=== PATIENT | female | born 1945 | race Caucasian/White ===

== ENCOUNTER 2017-05-01 16:19 | Inpatient (IN) | payer MEDICARE, OTHER ==
[~2017-05-01] VITALS: Ht 160 cm; Wt 53.2 kg
[~2017-05-01 16:19] MED LIST: WARF2.5T PO
[2017-05-01] MEDS ORDERED: ondansetron/PF 4mg/2ml inj IV ONE (17:00)
[2017-05-01] MEDS ORDERED: normal saline 1000ml 1,000 ML IV ONE (17:00)
[2017-05-01] MEDS ORDERED: normal saline 1000ML IV soln IV ONE (17:30)
[2017-05-01 17:51] LABS: BASOPHILS % (AUTO) 0.3 % (0-1); EOSINOPHILS # (AUTO) 0.1 X10'3 (0-0.9); EOSINOPHILS % (AUTO) 0.9 % (0-6); HEMOGLOBIN 8.2 g/dl (12.0-16.0); LYMPHOCYTES # (AUTO) 1.8 X10'3 (1.1-4.8); MEAN CORPUSCULAR HEMOGLOBIN 30.4 PG (27.0-31.0); MEAN CORPUSCULAR HGB CONC 32.7 % (33.0-36.5); MEAN CORPUSCULAR VOLUME 92.9 FL (78-98); MEAN PLATELET VOLUME 7.2 FL (7.4-10.4); MONOCYTES # (AUTO) 0.7 X10'3 (0-0.9); MONOCYTES % (AUTO) 7.2 % (2-12); NEUTROPHILS # (AUTO) 6.8 X10'3 (1.8-7.7); NEUTROPHILS % (AUTO) 72.6 % (42-75); PLATELET COUNT 436 X10'3 (140-440); RED BLOOD COUNT 2.69 X10'6 (4.20-5.60); RED CELL DISTRIBUTION WIDTH 15.4 % (11.5-14.5); WHITE BLOOD COUNT 9.4 X10'3 (4.5-11.0)
[2017-05-01 18:02] LABS: INR 1.7 INR; PROTHROMBIN TIME 16.9 SECONDS (9.0-12.0)
[2017-05-01 18:06] LABS: ALANINE AMINOTRANSFERASE 20 U/L (12-78); ALBUMIN 3.2 G/DL (3.4-5.0); ALBUMIN/GLOBULIN RATIO 0.9 (1.1-1.5); ALKALINE PHOSPHATASE 69 IU/L (46-116); ANION GAP 11 (8-16); ASPARTATE AMINO TRANSFERASE 19 U/L (10-37); BILIRUBIN,TOTAL 0.3 MG/DL (0.1-1.0); BLOOD UREA NITROGEN 54 MG/DL (7-18); BUN/CREATININE RATIO 38.8 (6.6-38.0); CALCIUM 8.3 MG/DL (8.5-10.1); CHLORIDE 107 MMOL/L (99-107); CREATININE 1.39 MG/DL (0.40-0.90); GLUCOSE 122 MG/DL (70-104); POTASSIUM 4.5 MMOL/L (3.5-5.1); SODIUM 141 MMOL/L (135-145); TOTAL CARBON DIOXIDE 23.5 MMOL/L (24-32); TOTAL PROTEIN 6.8 G/DL (6.4-8.2); eGFR 37 ML/MIN
[2017-05-01] MEDS: octreotide inj. 1,250 MCG in normal saline 250ml IV soln 250 ML IV SCH (18:43)
[2017-05-01] MEDS ORDERED: LORazepam 1 MG tablet PO PRN (20:35)
[2017-05-01] MEDS ORDERED: magnesium hydroxide 30ml (MOM) UD suspension PO PRN (20:35)
[2017-05-01] MEDS ORDERED: thiamine inj. 100 MG in normal saline 100ml IV soln 100 ML IV ONE (20:35)
[2017-05-01] MEDS ORDERED: ondansetron/PF 4mg/2ml inj IV PRN (20:35)
[2017-05-01] MEDS ORDERED: LORazepam 2 mg/ml vial IV PRN (20:35)
[2017-05-01] MEDS ORDERED: mag hydrox/Alum hydrox/simeth 30ml oral suspension PO PRN (20:35)
[2017-05-01] MEDS: pantoprazole 40MG/NS 100ML BAG 100 ML IV SCH (21:45)
[2017-05-01 22:11] LABS: OCCULT BLOOD STOOL POSITIVE (Neg)
[2017-05-01 23:22] VITALS: BP 148/98
[2017-05-01 23:42] VITALS: BP 154/84
[2017-05-01 23:55] VITALS: BP 151/78
[2017-05-02] VITALS (16 sets, daily range): BP systolic 141–183; BP diastolic 65–91
[2017-05-02] MEDS ORDERED: QUET-1 PO (00:19)
[2017-05-02] MEDS ORDERED: LOSA25TA96 PO (00:20)
[2017-05-02] MEDS: pantoprazole 40MG/NS 100ML BAG 100 ML IV SCH ×4 (02:07→15:59)
[2017-05-02] MEDS: normal saline 1000ml 1,000 ML IV SCH ×3 (02:23→15:38)
[2017-05-02 07:31] LABS: ANION GAP 9 (8-16); BLOOD UREA NITROGEN 52 MG/DL (7-18); BUN/CREATININE RATIO 36.6 (6.6-38.0); CHLORIDE 112 MMOL/L (99-107); CREATININE 1.42 MG/DL (0.40-0.90); GLUCOSE 119 MG/DL (70-104); MAGNESIUM 1.9 MG/DL (1.5-2.4); SODIUM 141 MMOL/L (135-145); TOTAL CARBON DIOXIDE 20.3 MMOL/L (24-32); eGFR 36 ML/MIN
[2017-05-02 07:32] LABS: INR 1.6 INR; PROTHROMBIN TIME 16.2 SECONDS (9.0-12.0)
[2017-05-02 07:33] LABS: BASOPHILS % (AUTO) 0.7 % (0-1); EOSINOPHILS # (AUTO) 0.1 X10'3 (0-0.9); EOSINOPHILS % (AUTO) 1.7 % (0-6); HEMATOCRIT 32.5 % (35.0-45.0); HEMOGLOBIN 10.8 g/dl (12.0-16.0); LYMPHOCYTES # (AUTO) 2.5 X10'3 (1.1-4.8); LYMPHOCYTES % (AUTO) 35.2 % (21-51); MEAN CORPUSCULAR HEMOGLOBIN 30.1 PG (27.0-31.0); MEAN CORPUSCULAR HGB CONC 33.4 % (33.0-36.5); MEAN CORPUSCULAR VOLUME 90.2 FL (78-98); MEAN PLATELET VOLUME 7.2 FL (7.4-10.4); MONOCYTES # (AUTO) 0.7 X10'3 (0-0.9); MONOCYTES % (AUTO) 10.6 % (2-12); NEUTROPHILS # (AUTO) 3.6 X10'3 (1.8-7.7); NEUTROPHILS % (AUTO) 51.8 % (42-75); PLATELET COUNT 264 X10'3 (140-440); RED CELL DISTRIBUTION WIDTH 16.5 % (11.5-14.5)
[2017-05-02] MEDS: thiamine 100mg tablet PO SCH (08:12)
[2017-05-02] MEDS: folic acid 1mg tablet PO SCH (08:13)
[2017-05-02] MEDS: multivitamins, therapeutics tablet PO SCH (08:13)
[2017-05-02] MEDS: acetaminophen 325mg tablet PO PRN (09:37)
[2017-05-02] MEDS ORDERED: normal saline 1000ml 1,000 ML IV SCH (11:09)
[2017-05-02] MEDS ORDERED: LIDOcaine Viscous 15ml cup PO ONE (11:10)
[2017-05-02] MEDS ORDERED: fentaNYL/PF 50MCG/1 ML 2ML syringe IV PRN (11:10)
[2017-05-02] MEDS ORDERED: simethicone 40mg/0.6ml oral drops 30ml MC ONE (11:10)
[2017-05-02] MEDS ORDERED: MIDAZolam 1mg/ml 10ml vial IV PRN (11:10)
[2017-05-02] MEDS ORDERED: fentaNYL/PF 50MCG/1 ML 2ML syringe ONE (11:55)
[2017-05-02] MEDS ORDERED: MIDAZolam 1mg/ml 10ml vial ONE (11:56)
[2017-05-02] MEDS ORDERED: LIDOcaine Viscous 15ml cup ONE (11:56)
[2017-05-02] MEDS ORDERED: epiNEPHrine 0.1mg/ml 10ml syringe ONE (13:55)
[2017-05-02 16:12] LABS: HEMOGLOBIN 10.8 g/dl (12.0-16.0); MEAN CORPUSCULAR HEMOGLOBIN 30.2 PG (27.0-31.0); MEAN CORPUSCULAR HGB CONC 33.6 % (33.0-36.5); MEAN CORPUSCULAR VOLUME 89.9 FL (78-98); MEAN PLATELET VOLUME 7.1 FL (7.4-10.4); PLATELET COUNT 259 X10'3 (140-440); RED BLOOD COUNT 3.56 X10'6 (4.20-5.60); RED CELL DISTRIBUTION WIDTH 16.8 % (11.5-14.5); WHITE BLOOD COUNT 10.1 X10'3 (4.5-11.0)
[2017-05-02] MEDS ORDERED: haloperidol 5mg tablet PO PRN (19:00)
[2017-05-02] MEDS ORDERED: haloperidol lactate 5mg/ml inj IM PRN (19:00)
[2017-05-02] MEDS ORDERED: LORazepam 2 mg/ml vial IV PRN (19:00)
[2017-05-02] MEDS ORDERED: LORazepam 1 MG tablet PO PRN (19:00)
[2017-05-02] MEDS ORDERED: mag hydrox/Alum hydrox/simeth 30ml oral suspension PO PRN (19:00)
[2017-05-02] MEDS ORDERED: thiamine inj. 100 MG in normal saline 100ml IV soln 100 ML IV ONE (19:00)
[2017-05-02] MEDS ORDERED: loperamide 2mg capsule PO PRN (19:00)
[2017-05-02] MEDS: octreotide inj. 1,250 MCG in normal saline 250ml IV soln 250 ML IV SCH (20:27)
[2017-05-02 20:50] LABS: HEMATOCRIT 26.7 % (35.0-45.0); HEMOGLOBIN 8.9 g/dl (12.0-16.0); MEAN CORPUSCULAR HGB CONC 33.4 % (33.0-36.5); MEAN CORPUSCULAR VOLUME 89.8 FL (78-98); MEAN PLATELET VOLUME 6.7 FL (7.4-10.4); PLATELET COUNT 247 X10'3 (140-440); RED BLOOD COUNT 2.97 X10'6 (4.20-5.60); RED CELL DISTRIBUTION WIDTH 16.9 % (11.5-14.5); WHITE BLOOD COUNT 7.6 X10'3 (4.5-11.0)
[2017-05-02] MEDS: quetiapine 100mg tablet PO SCH (21:15)
[2017-05-03] MEDS: normal saline 1000ml 1,000 ML IV SCH ×3 (00:25→17:13)
[2017-05-03] MEDS: pantoprazole 40MG/NS 100ML BAG 100 ML IV SCH ×6 (00:25→23:00)
[2017-05-03 02:30] VITALS: BP 147/66
[2017-05-03 06:00] VITALS: BP 154/80
[2017-05-03 06:08] LABS: BASOPHILS % (AUTO) 0.7 % (0-1); EOSINOPHILS # (AUTO) 0.2 X10'3 (0-0.9); EOSINOPHILS % (AUTO) 4.4 % (0-6); HEMOGLOBIN 9.1 g/dl (12.0-16.0); LYMPHOCYTES # (AUTO) 1.7 X10'3 (1.1-4.8); LYMPHOCYTES % (AUTO) 33.3 % (21-51); MEAN CORPUSCULAR HGB CONC 33.6 % (33.0-36.5); MEAN CORPUSCULAR VOLUME 89.1 FL (78-98); MEAN PLATELET VOLUME 6.8 FL (7.4-10.4); MONOCYTES # (AUTO) 0.4 X10'3 (0-0.9); MONOCYTES % (AUTO) 7.9 % (2-12); NEUTROPHILS # (AUTO) 2.8 X10'3 (1.8-7.7); NEUTROPHILS % (AUTO) 53.7 % (42-75); PLATELET COUNT 264 X10'3 (140-440); RED BLOOD COUNT 3.02 X10'6 (4.20-5.60); RED CELL DISTRIBUTION WIDTH 16.7 % (11.5-14.5); WHITE BLOOD COUNT 5.1 X10'3 (4.5-11.0)
[2017-05-03 06:24] LABS: INR 2.1 INR; PROTHROMBIN TIME 20.9 SECONDS (9.0-12.0)
[2017-05-03 06:41] LABS: ALANINE AMINOTRANSFERASE 19 U/L (12-78); ALBUMIN 2.4 G/DL (3.4-5.0); ALBUMIN/GLOBULIN RATIO 0.8 (1.1-1.5); ALKALINE PHOSPHATASE 53 IU/L (46-116); AMYLASE 52 U/L (25-115); ANION GAP 7 (8-16); ASPARTATE AMINO TRANSFERASE 19 U/L (10-37); BILIRUBIN,TOTAL 0.3 MG/DL (0.1-1.0); BLOOD UREA NITROGEN 30 MG/DL (7-18); BUN/CREATININE RATIO 26.3 (6.6-38.0); CALCIUM 7.5 MG/DL (8.5-10.1); CHLORIDE 116 MMOL/L (99-107); CREATININE 1.14 MG/DL (0.40-0.90); GLUCOSE 110 MG/DL (70-104); LIPASE 242 U/L (73-393); MAGNESIUM 1.6 MG/DL (1.5-2.4); PHOSPHORUS 2.4 MG/DL (2.3-4.5); SODIUM 143 MMOL/L (135-145); TOTAL CARBON DIOXIDE 19.7 MMOL/L (24-32); TOTAL PROTEIN 5.4 G/DL (6.4-8.2); eGFR 47 ML/MIN
[2017-05-03] MEDS ORDERED: folic acid inj. 2 MG, thiamine inj. 100 MG, MVI, adult No.4 with vit. K 10 ML in dextro... IV SCH ×4 (08:00)
[2017-05-03] MEDS ORDERED: nicotine 14mg patch - 24hr TD SCH (08:00)
[2017-05-03] MEDS: folic acid 1mg tablet PO SCH (09:00)
[2017-05-03] MEDS: multivitamins, therapeutics tablet PO SCH (09:00)
[2017-05-03] MEDS: thiamine 100mg tablet PO SCH (09:00)
[2017-05-03 09:58] LABS: HEMATOCRIT 28.1 % (35.0-45.0); HEMOGLOBIN 9.4 g/dl (12.0-16.0); MEAN CORPUSCULAR HEMOGLOBIN 29.9 PG (27.0-31.0); MEAN CORPUSCULAR HGB CONC 33.5 % (33.0-36.5); MEAN CORPUSCULAR VOLUME 89.3 FL (78-98); MEAN PLATELET VOLUME 6.9 FL (7.4-10.4); PLATELET COUNT 253 X10'3 (140-440); RED BLOOD COUNT 3.14 X10'6 (4.20-5.60); RED CELL DISTRIBUTION WIDTH 17.1 % (11.5-14.5); WHITE BLOOD COUNT 5.6 X10'3 (4.5-11.0)
[2017-05-03 11:00] VITALS: BP 169/72
[2017-05-03 15:00] VITALS: BP 166/79
[2017-05-03 15:21] LABS: HEMATOCRIT 28.6 % (35.0-45.0); HEMOGLOBIN 9.6 g/dl (12.0-16.0); MEAN CORPUSCULAR HEMOGLOBIN 29.9 PG (27.0-31.0); MEAN CORPUSCULAR HGB CONC 33.6 % (33.0-36.5); MEAN CORPUSCULAR VOLUME 89.2 FL (78-98); MEAN PLATELET VOLUME 6.6 FL (7.4-10.4); PLATELET COUNT 264 X10'3 (140-440); RED CELL DISTRIBUTION WIDTH 16.7 % (11.5-14.5); WHITE BLOOD COUNT 6.7 X10'3 (4.5-11.0)
[2017-05-03 17:50] VITALS: BP 132/87
[2017-05-03] MEDS: quetiapine 100mg tablet PO SCH (19:52)
[2017-05-03 20:51] LABS: HEMATOCRIT 26.5 % (35.0-45.0); HEMOGLOBIN 8.9 g/dl (12.0-16.0); MEAN CORPUSCULAR HEMOGLOBIN 29.9 PG (27.0-31.0); MEAN CORPUSCULAR HGB CONC 33.6 % (33.0-36.5); MEAN PLATELET VOLUME 6.5 FL (7.4-10.4); PLATELET COUNT 266 X10'3 (140-440); RED BLOOD COUNT 2.97 X10'6 (4.20-5.60); RED CELL DISTRIBUTION WIDTH 16.3 % (11.5-14.5); WHITE BLOOD COUNT 6.2 X10'3 (4.5-11.0)
[2017-05-03 22:00] VITALS: BP 152/88
[2017-05-03] MEDS: octreotide inj. 1,250 MCG in normal saline 250ml IV soln 250 ML IV SCH (23:30)
[2017-05-04] MEDS: acetaminophen 325mg tablet PO PRN (00:40)
[2017-05-04] MEDS: pantoprazole 40MG/NS 100ML BAG 100 ML IV SCH ×5 (01:00→19:58)
[2017-05-04] MEDS: normal saline 1000ml 1,000 ML IV SCH (02:33)
[2017-05-04 06:00] VITALS: BP 150/95
[2017-05-04 06:06] LABS: BASOPHILS % (AUTO) 0.6 % (0-1); EOSINOPHILS # (AUTO) 0.2 X10'3 (0-0.9); EOSINOPHILS % (AUTO) 4.4 % (0-6); HEMATOCRIT 26.3 % (35.0-45.0); HEMOGLOBIN 8.8 g/dl (12.0-16.0); LYMPHOCYTES # (AUTO) 2.1 X10'3 (1.1-4.8); MEAN CORPUSCULAR HGB CONC 33.4 % (33.0-36.5); MEAN CORPUSCULAR VOLUME 89.7 FL (78-98); MEAN PLATELET VOLUME 6.9 FL (7.4-10.4); MONOCYTES # (AUTO) 0.5 X10'3 (0-0.9); MONOCYTES % (AUTO) 9.2 % (2-12); NEUTROPHILS # (AUTO) 2.4 X10'3 (1.8-7.7); NEUTROPHILS % (AUTO) 45.8 % (42-75); PLATELET COUNT 250 X10'3 (140-440); RED BLOOD COUNT 2.94 X10'6 (4.20-5.60); RED CELL DISTRIBUTION WIDTH 16.6 % (11.5-14.5); WHITE BLOOD COUNT 5.2 X10'3 (4.5-11.0)
[2017-05-04 06:16] LABS: INR 2.4 INR; PROTHROMBIN TIME 23.7 SECONDS (9.0-12.0)
[2017-05-04 06:26] LABS: ALANINE AMINOTRANSFERASE 19 U/L (12-78); ALBUMIN 2.4 G/DL (3.4-5.0); ALBUMIN/GLOBULIN RATIO 0.8 (1.1-1.5); ALKALINE PHOSPHATASE 54 IU/L (46-116); AMYLASE 51 U/L (25-115); ANION GAP 9 (8-16); ASPARTATE AMINO TRANSFERASE 17 U/L (10-37); BILIRUBIN,TOTAL 0.3 MG/DL (0.1-1.0); BLOOD UREA NITROGEN 14 MG/DL (7-18); BUN/CREATININE RATIO 11.9 (6.6-38.0); CALCIUM 7.6 MG/DL (8.5-10.1); CHLORIDE 117 MMOL/L (99-107); CREATININE 1.18 MG/DL (0.40-0.90); GLUCOSE 107 MG/DL (70-104); LIPASE 291 U/L (73-393); MAGNESIUM 1.4 MG/DL (1.5-2.4); PHOSPHORUS 2.6 MG/DL (2.3-4.5); POTASSIUM 3.6 MMOL/L (3.5-5.1); SODIUM 147 MMOL/L (135-145); TOTAL CARBON DIOXIDE 20.9 MMOL/L (24-32); TOTAL PROTEIN 5.3 G/DL (6.4-8.2); eGFR 45 ML/MIN
[2017-05-04] MEDS ORDERED: magnesium 2GM in 50ml NS 50 ML IV PRN (07:15)
[2017-05-04] MEDS ORDERED: magnesium 4gm in 100ml NS 100 ML IV PRN (07:15)
[2017-05-04] MEDS: magnesium Cl slow-release 64mg tablet PO PRN (07:41)
[2017-05-04] MEDS: thiamine 100mg tablet PO SCH (07:41)
[2017-05-04] MEDS: multivitamins, therapeutics tablet PO SCH (07:41)
[2017-05-04] MEDS: folic acid 1mg tablet PO SCH (07:41)
[2017-05-04 09:41] LABS: HEMATOCRIT 26.4 % (35.0-45.0); HEMOGLOBIN 8.9 g/dl (12.0-16.0); MEAN CORPUSCULAR HEMOGLOBIN 30.4 PG (27.0-31.0); MEAN CORPUSCULAR HGB CONC 33.8 % (33.0-36.5); MEAN PLATELET VOLUME 6.5 FL (7.4-10.4); PLATELET COUNT 267 X10'3 (140-440); RED BLOOD COUNT 2.93 X10'6 (4.20-5.60); RED CELL DISTRIBUTION WIDTH 16.8 % (11.5-14.5); WHITE BLOOD COUNT 4.9 X10'3 (4.5-11.0)
[2017-05-04 10:30] VITALS: BP 164/96
[2017-05-04] MEDS: dextrose 5%-water 1,000 ML IV SCH (13:47)
[2017-05-04 14:34] VITALS: BP 187/97
[2017-05-04] MEDS: hyDRALAzine 10mg tablet PO SCH ×2 (16:10→19:56)
[2017-05-04 18:15] VITALS: BP 170/92
[2017-05-04] MEDS: quetiapine 100mg tablet PO SCH (19:56)
[2017-05-04 22:12] VITALS: BP 180/78
[2017-05-04] MEDS: octreotide inj. 1,250 MCG in normal saline 250ml IV soln 250 ML IV SCH (23:43)
[2017-05-05] MEDS: pantoprazole 40MG/NS 100ML BAG 100 ML IV SCH ×3 (01:07→10:21)
[2017-05-05] MEDS: hyDRALAzine 10mg tablet PO SCH ×3 (02:09→14:00)
[2017-05-05 02:10] VITALS: BP_SYST 166; BP_DIAS 53; BP_DIAS 87
[2017-05-05 05:00] VITALS: BP 165/96
[2017-05-05] MEDS: dextrose 5%-water 1,000 ML IV SCH (10:21)
[2017-05-05 10:30] VITALS: BP 142/116
[2017-05-05 11:00] LABS: BASOPHILS % (AUTO) 0.6 % (0-1); EOSINOPHILS # (AUTO) 0.2 X10'3 (0-0.9); EOSINOPHILS % (AUTO) 3.6 % (0-6); HEMATOCRIT 30.2 % (35.0-45.0); HEMOGLOBIN 9.9 g/dl (12.0-16.0); LYMPHOCYTES # (AUTO) 1.7 X10'3 (1.1-4.8); LYMPHOCYTES % (AUTO) 30.7 % (21-51); MEAN CORPUSCULAR HEMOGLOBIN 29.8 PG (27.0-31.0); MEAN CORPUSCULAR HGB CONC 32.7 % (33.0-36.5); MEAN CORPUSCULAR VOLUME 91.1 FL (78-98); MEAN PLATELET VOLUME 6.8 FL (7.4-10.4); MONOCYTES # (AUTO) 0.5 X10'3 (0-0.9); MONOCYTES % (AUTO) 9.6 % (2-12); NEUTROPHILS # (AUTO) 3.1 X10'3 (1.8-7.7); NEUTROPHILS % (AUTO) 55.5 % (42-75); PLATELET COUNT 281 X10'3 (140-440); RED BLOOD COUNT 3.31 X10'6 (4.20-5.60); RED CELL DISTRIBUTION WIDTH 16.1 % (11.5-14.5); WHITE BLOOD COUNT 5.5 X10'3 (4.5-11.0)
[2017-05-05 11:04] LABS: MAGNESIUM 1.4 MG/DL (1.5-2.4); POTASSIUM 3.5 MMOL/L (3.5-5.1)
[2017-05-05] MEDS ORDERED: MULT-1179 PO (11:39)
[2017-05-05] MEDS ORDERED: FOLI1TAB16 PO (11:39)
[2017-05-05] MEDS ORDERED: THI100T PO (11:39)
[2017-05-05] MEDS ORDERED: PANT40TA4 PO (11:39)
[2017-05-05 11:40] LABS: ALBUMIN 2.8 G/DL (3.4-5.0); ANION GAP 8 (8-16); BLOOD UREA NITROGEN 8 MG/DL (7-18); BUN/CREATININE RATIO 7.5 (6.6-38.0); CALCIUM 8.4 MG/DL (8.5-10.1); CHLORIDE 111 MMOL/L (99-107); CREATININE 1.06 MG/DL (0.40-0.90); GLUCOSE 125 MG/DL (70-104); SODIUM 143 MMOL/L (135-145); TOTAL CARBON DIOXIDE 24.5 MMOL/L (24-32); eGFR 51 ML/MIN
[2017-05-05] MEDS: thiamine 100mg tablet PO SCH (11:47)
[2017-05-05] MEDS: folic acid 1mg tablet PO SCH (11:47)
[2017-05-05] MEDS: magnesium Cl slow-release 64mg tablet PO PRN (11:47)
[2017-05-05] MEDS: multivitamins, therapeutics tablet PO SCH (11:47)
[2017-05-05] MEDS ORDERED: AMLO5TAB4 PO (11:48)
[2017-05-05] MEDS ORDERED: propranolol 10mg tablet PO SCH (13:00)
[2017-05-05 14:20] LABS: H PYLORI ANTIBODY NEGATIVE (Neg)
[2017-05-05] MEDS ORDERED: pantoprazole 40mg Tablet.DR PO SCH (20:00)
[2017-05-05] MEDS ORDERED: ciprofloxacin 500MG tablet PO SCH (20:00)
== END 2017-05-05 14:35 | disposition home or self-care (01) | DRG 682 ==
LOC: ER 16:23 → ED HOLD 20:33 → PCU 3S 05-02 14:00 → ORTHO 4S 05-03 17:58 → UNDODISIN 05-04 12:10
PROVIDERS: ADMIT Internal Medicine; ATTEND Family Medicine
PROC: 30233N1 Transfusion of Nonautologous Red Blood Cells into Peripheral Vein, Percutaneous Approach (ICD-10-PCS; 2017-05-01)
PROC: 0W3P8ZZ Control Bleeding in Gastrointestinal Tract, Via Natural or Artificial Opening Endoscopic (ICD-10-PCS; principal; 2017-05-02)
PROC: 3E0G8GC Introduction of Other Therapeutic Substance into Upper GI, Via Natural or Artificial Opening Endoscopic (ICD-10-PCS; 2017-05-02)
DX: N17.9 Acute kidney failure, unspecified (principal); K26.4 Chronic or unspecified duodenal ulcer with hemorrhage; I48.91 Unspecified atrial fibrillation; D62 Acute posthemorrhagic anemia; E86.0 Dehydration; F10.10 Alcohol abuse, uncomplicated; I12.9 Hypertensive chronic kidney disease with stage 1 through stage 4 chronic kidney disease, or unspecified chronic kidney disease; K20.9 Esophagitis, unspecified; N18.9 Chronic kidney disease, unspecified; Z79.01 Long term (current) use of anticoagulants; Z79.899 Other long term (current) drug therapy; Z79.82 Long term (current) use of aspirin; Z86.73 Personal history of transient ischemic attack (TIA), and cerebral infarction without residual deficits; Z87.891 Personal history of nicotine dependence
CPT/HCPCS: 36415; 71045; 80048; 80053; 82150; 82272; 83690; 83735; 84100; 85025; 85027; 85610; 86677; 86885; 86900; 86901; 86920; 87070; 96361; 96374; 97116; 97162; 99291; 99292; A4620; C9113; G0500; J0171; J2250; J2354; J2405; J3010; J3411; J3490; J7030; J7042; J7060; J7070; P9016